=== PATIENT | male | born 1960 | race Caucasian/White ===

== ENCOUNTER 2019-07-03 10:51 | Inpatient (IN) | payer MEDICARE ==
[~2019-07-03] VITALS: Ht 165.1 cm; Wt 143.6 kg
--- NOTE | 2019-07-03 11:00 | NUR ---
Pt arrives from dialysis center with hypotension. Pt resident at [facility], was sent to dialysis center for dialysis catheter problem/cath change. Pt was noted to have BP 70's/50's; unable to complete procedure. (Cath to right chest has dressing placed today. Pt states last dialysis yesterday). Pt states he has been feeling unwell last 2-3 days with flu-like symptoms and malaise. Also c/o pain to bilat outer thighs. Pt has 2 wounds to abd that are dressed post wound vac. Pt states he was admitted to [facility] with infection and had surgical debridement there in April. Unable to assess wound beds due to presence of wound vac sponges. Wound vac left at [place]. Lower abd is erythematous and firm; when asked if this is within baseline for pt, he is unsure. Pt is otherwise alert, oriented, interacting well. Color is pale and pt is midly tachypneic with sats in high 80's on room air. Pt denies resp history. O2 2L via NC placed to keep sats above 92%.
[2019-07-03] MEDS: SODIUM CHLORIDE 0.9% 1,000ML IVBOLUS ONE ×2 (11:30→11:57)
[2019-07-03] MEDS ORDERED: PLEASE ENTER ALLERGIES MC SCH (11:30)
[2019-07-03] MEDS ORDERED: PLEASE ENTER HEIGHT AND WEIGHT MC SCH (11:30)
[2019-07-03] MEDS ORDERED: SODIUM CHLORIDE FLUSH 10ML SYR IVF ONE (11:30)
--- NOTE | 2019-07-03 12:00 | NUR ---
Pt continues to be alert and oriented, color improving with interventions. Pt has been incontinent of stool; pt cleaned, bed remade, and waffle mattress placed. Pt given ice chips; okay per Dr. Almeida.
[2019-07-03 12:03] LABS: MEAN CORPUSCULAR HEMOGLOBIN 30.1 pg (27.5-34.5); MEAN CORPUSCULAR HGB CONC 31.7 g/dL (33.2-36.2); MEAN CORPUSCULAR VOLUME 94.8 fL (81-97); MEAN PLATELET VOLUME 7.4 fL (7.4-10.4); PLATELET COUNT 198 x10^3/uL (130-400); RED BLOOD COUNT 3.98 x10^6/uL (4.38-5.82); RED CELL DISTRIBUTION WIDTH 18.4 % (9.4-14.8)
[2019-07-03 12:13] LABS: ALANINE AMINOTRANSFERASE 16 U/L (12-78); ALBUMIN 1.9 g/dL (3.4-5.0); ANION GAP 8 mmol/L (5-15); CALCIUM 9.4 mg/dL (8.5-10.1); CHLORIDE 97 mmol/L (98-107); CREATININE 7.71 mg/dL (0.7-1.3)
[2019-07-03 12:18] LABS: ALKALINE PHOSPHATASE 89 U/L (45-117); BILIRUBIN,TOTAL 0.4 mg/dL (0.2-1.0); TOTAL PROTEIN 7.3 g/dL (6.4-8.2); TROPONIN I < 0.015 ng/mL (0.000-0.045)
[2019-07-03 12:19] LABS: MD YES
[2019-07-03 12:20] LABS: ANISOCYTOSIS 1+; BAND#(MANUAL) 1.29 x10^3/uL; BANDS%(MANUAL) 4 % (0-7); LYMPH#(MANUAL) 0.65 x10^3/uL (1-3.4); LYMPHS% (MANUAL) 2 % (22-44); MONOS#(MANUAL) 1.62 x10^3/uL (0.3-2.7); MONOS% (MANUAL) 5 % (2-9); SEG#(MANUAL) 28.75 x10^3/uL (1.8-6.8); SEGS% (MANUAL) 89 % (42-75)
[2019-07-03 12:21] LABS: <PLATELET ESTIMATE> ADEQUATE; <PLT MORPHOLOGY> NORMAL PLT MORPH; PMNS WITH VACUOLES 1+; POLYCHROMASIA 1+
[2019-07-03] MEDS ORDERED: SODIUM CHLORIDE 0.9% 1,000ML IVBOLUS ONE (12:30)
[2019-07-03] MEDS ORDERED: GENTAMICIN PER PHARMACY MC PRN ×2 (12:30→13:30)
[2019-07-03] MEDS ORDERED: VANCOMYCIN PER PHARMACY MC ONE (12:30)
[2019-07-03 12:50] LABS: % IRON SATURATION 9 % (20-55); IRON LEVEL 17 mcg/dL (65-175); TOTAL IRON BINDING CAPACITY 187 mcg/dL (250-450)
[2019-07-03] MEDS ORDERED: ACETAMINOPHEN 500 MG TABLET ONE (12:59)
[2019-07-03] MEDS ORDERED: SODIUM CHLORIDE FLUSH 10ML SYR IVF PRN (13:00)
[2019-07-03] MEDS ORDERED: ACETAMINOPHEN 500 MG TABLET PO ONE (13:00)
[2019-07-03 13:05] LABS: CALCIUM 8.8 mg/dL (8.5-10.1)
[2019-07-03 13:06] LABS: ABSOLUTE RETICS # 0.076 x10^6/uL (0.5-1.5); RED BLOOD COUNT 3.81 x10^6/uL (4.38-5.82)
[2019-07-03] MEDS ORDERED: VANCOMYCIN PER PHARMACY MC PRN (13:30)
[2019-07-03] MEDS ORDERED: BISACODYL 10 MG SUPP PR PRN (13:30)
[2019-07-03] MEDS ORDERED: POLYETHYLENE GLYCOL 17 GM PACKET PO PRN (13:30)
[2019-07-03] MEDS ORDERED: ONDANSETRON 2MG/ML, 2ML IVPush PRN (13:30)
[2019-07-03] MEDS ORDERED: NOREPINEPHRINE 4 MG in SODIUM CHLORIDE 0.9% 246 ML IV PRN ×2 (13:30→14:56)
[2019-07-03] MEDS ORDERED: VASOPRESSIN 100 UNIT in SODIUM CHLORIDE 0.9% 495 ML IV PRN (13:30)
[2019-07-03] MEDS ORDERED: ACETAMINOPHEN 325 MG TABLET PO PRN (13:30)
--- NOTE | 2019-07-03 13:30 | NUR ---
PT STATES HE HAS DIALYSIS FISTULA IN LEFT ARM; THIS RN UNABLE TO PALPATE FISTULA. SALES COMMUNICATIONS MANAGER DR CHURCH IN TO SEE PT; DR CHURCH CONFIRMS TO FISTULA PALPATED. PER DR CHURCH, OK TO USE LEFT ARM FOR BP'S/IV
--- NOTE | 2019-07-03 13:43 | NUR ---
BEDSIDE REPORT RECIEVED FROM FANI MILLS, PT RESTING IN BED. CALL LIGHT IN REACH.
[2019-07-03] MEDS ORDERED: HEPARIN 5,000 UNITS/ML, 1ML ONE (13:48)
[2019-07-03] MEDS ORDERED: LIDOCAINE 1%, 10ML ONE ×2 (13:56→13:57)
[2019-07-03] MEDS ORDERED: PHARMACOKINETIC CONSULTATION MC ONE (14:00)
[2019-07-03] MEDS ORDERED: VANCOMYCIN 2,500 MG in SODIUM CHLORIDE 0.9% 500 ML IV ONE (14:00)
[2019-07-03] MEDS: HEPARIN 5,000 UNITS/ML, 1ML SQ SCH ×2 (14:17→21:40)
--- NOTE | 2019-07-03 14:26 | NUR ---
3rd Liter NS started. Pt with increasing oxygen requirement when sleeping (4L, up from 2L when awake). Breath sounds are clear, and sats increase when pt awakes. No concern for pulmonary edema at this time. Pt to IR for dialysis cath exchange.
[2019-07-03] MEDS ORDERED: SUCCINYLCHOLINE 20 MG/ML, 10ML IVPush ONE (15:00)
[2019-07-03] MEDS ORDERED: ETOMIDATE 20 MG/10 ML IV ONE (15:00)
--- NOTE | 2019-07-03 15:05 | NUR ---
Pt with decreased LOC in IR; responds minimally with deep sternal rub. Proceduralist uncomfortable with cath exchange; pt returned to ED. Dr Almeida notified and ABG's ordered.
--- NOTE | 2019-07-03 15:30 | NUR ---
Pt awakens with ABG draw and IV placement; states he "took a nap" while awaiting cath exchange and now woke up "with all these people buzzing around." Pt now alert and interacting appropriately. Dr. Rogers in to evaluate; wound dressings to abd removed; + foul smelling draining from both wounds. Wound Care consulted. Pt systolic remains above 90, but MAP consistently below 65. IV bolus still infusing; 4th liter starting. No urine output. Levophed started.
--- NOTE | 2019-07-03 15:45 | NUR ---
IR to ED to exchange catheter. automation machine builder at bedside. Report called to Tara in ICU and pt prepared for transport.
[2019-07-03] MEDS ORDERED: GENTAMICIN 270 MG in SODIUM CHLORIDE 0.9% 100 ML IV ONE (16:00)
[2019-07-03] MEDS: SODIUM CHLORIDE 0.9% 1,000 ML IV SCH (17:33)
[2019-07-03] MEDS ORDERED: FAMOTIDINE 20 MG TABLET PO SCH (21:00)
[2019-07-04] MEDS: SODIUM CHLORIDE 0.9% 1,000 ML IV SCH ×2 (02:07→11:00)
[2019-07-04 03:55] LABS: CLOSTRIDIUM DIFFICILE TOXIN NEGATIVE (Negative)
[2019-07-04 03:58] LABS: CLOSTRIDIUM DIFFICILE ANTIGEN POSITIVE
[2019-07-04 04:00] VITALS: BP 112/49
[2019-07-04 04:45] LABS: MEAN CORPUSCULAR HGB CONC 31.2 g/dL (33.2-36.2); MEAN CORPUSCULAR VOLUME 96.1 fL (81-97); MEAN PLATELET VOLUME 7.3 fL (7.4-10.4); PLATELET COUNT 210 x10^3/uL (130-400); RED BLOOD COUNT 3.64 x10^6/uL (4.38-5.82); RED CELL DISTRIBUTION WIDTH 19.4 % (9.4-14.8)
[2019-07-04 04:56] LABS: ALANINE AMINOTRANSFERASE 13 U/L (12-78); ALBUMIN 1.6 g/dL (3.4-5.0); ANION GAP 7 mmol/L (5-15); CHLORIDE 104 mmol/L (98-107)
[2019-07-04 04:59] LABS: ALKALINE PHOSPHATASE 95 U/L (45-117); BILIRUBIN,TOTAL 0.3 mg/dL (0.2-1.0); CREATININE 7.95 mg/dL (0.7-1.3); TOTAL PROTEIN 6.4 g/dL (6.4-8.2)
[2019-07-04] MEDS: HEPARIN 5,000 UNITS/ML, 1ML SQ SCH ×3 (05:14→21:43)
[2019-07-04 05:51] LABS: BASOPHILS # (AUTO) 0.03 x10^3/uL (0-0.1); BASOPHILS % (AUTO) 0 % (0-1); EOSINOPHILS # (AUTO) 0.14 x10^3/uL (0-0.4); EOSINOPHILS % (AUTO) 1 % (1-7); LYMPHOCYTES # (AUTO) 1.42 x10^3/uL (1-3.4); LYMPHOCYTES % (AUTO) 5 % (22-44); MD SCAN; MONOCYTES # (AUTO) 1.27 x10^3/uL (0.2-0.8); MONOCYTES % (AUTO) 4 % (2-9); NEUTROPHILS # (AUTO) 26.07 x10^3/uL (1.8-6.8); NEUTROPHILS % (AUTO) 90 % (42-75)
[2019-07-04] MEDS: VANCOMYCIN 50 MG/ML ORAL SUSP PO SCH ×3 (09:34→21:43)
[2019-07-04] MEDS: SENNA/DOCUSATE TABLET PO SCH (09:34)
[2019-07-04] MEDS ORDERED: PHARMACOKINETIC MONITORING MC PRN (11:00)
[2019-07-04] MEDS ORDERED: SODIUM CHLORIDE 0.9% 1,000 ML IV PRN (11:30)
[2019-07-04] MEDS: IRON SUCROSE COMPLEX 100MG/5ML IV SCH (14:09)
[2019-07-04] MEDS: DAKIN'S SOLUTION 1/4 STRENGTH 1,000 ML IRRIG SOLN EXT SCH (14:10)
[2019-07-04] MEDS ORDERED: AMLO2.5T5 PO (15:12)
[2019-07-04] MEDS ORDERED: LIDO6JEL MM (15:12)
[2019-07-04] MEDS ORDERED: SEVE800T8 PO (15:12)
[2019-07-04] MEDS ORDERED: DOXY50TA13 PO (15:12)
[2019-07-04] MEDS ORDERED: NIAC500T26 PO (15:12)
[2019-07-04] MEDS ORDERED: HUM100VI6 SQ (15:12)
[2019-07-04] MEDS ORDERED: GLIP2.5T3 PO (15:12)
[2019-07-04] MEDS ORDERED: HEPA1DIS11 SQ (15:12)
[2019-07-04] MEDS ORDERED: FERR325T5 PO (15:12)
[2019-07-04] MEDS ORDERED: ERGO500018 PO (15:12)
[2019-07-04] MEDS ORDERED: FOLI0.8T3 PO (15:12)
[2019-07-04] MEDS: FAMOTIDINE 20 MG TABLET PO SCH (21:43)
[2019-07-05 04:00] VITALS: BP 101/52
[2019-07-05] MEDS: VANCOMYCIN 50 MG/ML ORAL SUSP PO SCH ×4 (04:20→21:25)
[2019-07-05 05:07] LABS: CULTURE INDICATED? YES; MICROSCOPIC INDICATED
[2019-07-05] MEDS: HEPARIN 5,000 UNITS/ML, 1ML SQ SCH ×3 (06:06→21:25)
[2019-07-05] MEDS: SENNA/DOCUSATE TABLET PO SCH (08:13)
[2019-07-05] MEDS: DAKIN'S SOLUTION 1/4 STRENGTH 1,000 ML IRRIG SOLN EXT SCH (08:32)
[2019-07-05] MEDS: IRON SUCROSE COMPLEX 100MG/5ML IV SCH (08:45)
[2019-07-05 12:37] VITALS: BP 112/68
[2019-07-05 18:54] VITALS: BP 118/63
[2019-07-05] MEDS: FAMOTIDINE 20 MG TABLET PO SCH (21:24)
[2019-07-06 00:34] VITALS: BP 109/69
[2019-07-06] MEDS: VANCOMYCIN 50 MG/ML ORAL SUSP PO SCH ×4 (04:05→21:19)
[2019-07-06] MEDS: HEPARIN 5,000 UNITS/ML, 1ML SQ SCH ×3 (05:12→21:19)
[2019-07-06 06:30] LABS: ALANINE AMINOTRANSFERASE 18 U/L (12-78); ALBUMIN 1.6 g/dL (3.4-5.0); ANION GAP 9 mmol/L (5-15); CALCIUM 8.6 mg/dL (8.5-10.1); CHLORIDE 102 mmol/L (98-107); CREATININE 7.81 mg/dL (0.7-1.3)
[2019-07-06 06:32] LABS: ALKALINE PHOSPHATASE 94 U/L (45-117); BILIRUBIN,TOTAL 0.3 mg/dL (0.2-1.0); TOTAL PROTEIN 6.4 g/dL (6.4-8.2); VANCOMYCIN,RANDOM 20.5 mcg/mL
[2019-07-06 06:51] LABS: MEAN CORPUSCULAR HEMOGLOBIN 29.9 pg (27.5-34.5); MEAN CORPUSCULAR HGB CONC 31.5 g/dL (33.2-36.2); MEAN CORPUSCULAR VOLUME 94.8 fL (81-97); MEAN PLATELET VOLUME 6.9 fL (7.4-10.4); PLATELET COUNT 256 x10^3/uL (130-400); RED BLOOD COUNT 3.44 x10^6/uL (4.38-5.82); RED CELL DISTRIBUTION WIDTH 18.8 % (9.4-14.8)
[2019-07-06 07:03] VITALS: BP 118/69
[2019-07-06 07:17] LABS: MD YES
[2019-07-06 07:19] LABS: <PLATELET ESTIMATE> ADEQUATE; <PLT MORPHOLOGY> NORMAL PLT MORPH; ANISOCYTOSIS 1+; BAND#(MANUAL) 0.77 x10^3/uL; BANDS%(MANUAL) 4 % (0-7); EOS#(MANUAL) 0.58 x10^3/uL (0.0-0.4); EOS% (MANUAL) 3 % (1-7); LYMPH#(MANUAL) 1.54 x10^3/uL (1-3.4); LYMPHS% (MANUAL) 8 % (22-44); METAMYELOCYTES# (MANUAL) 0.39 x10^3/uL (0-0); METAMYELOCYTES% (MANUAL) 2 % (0-1); MONOS#(MANUAL) 1.35 x10^3/uL (0.3-2.7); MONOS% (MANUAL) 7 % (2-9); MYELOCYTES# (MANUAL) 0.58 x10^3/uL (0-0); MYELOCYTES% (MANUAL) 3 % (0-0); POLYCHROMASIA 1+; SEG#(MANUAL) 14.09 x10^3/uL (1.8-6.8); SEGS% (MANUAL) 73 % (42-75)
[2019-07-06] MEDS: SENNA/DOCUSATE TABLET PO SCH (08:05)
[2019-07-06] MEDS: IRON SUCROSE COMPLEX 100MG/5ML IV SCH (08:05)
[2019-07-06 13:02] LABS: VANCOMYCIN,RANDOM 15.5 mcg/mL
[2019-07-06] MEDS ORDERED: VANCOMYCIN 2,000 MG in SODIUM CHLORIDE 0.9% 250 ML IV ONE (14:00)
[2019-07-06 14:15] VITALS: BP 112/71
[2019-07-06] MEDS ORDERED: GENTAMICIN 160 MG in SODIUM CHLORIDE 0.9% 50 ML IV ONE (16:00)
[2019-07-06 18:31] VITALS: BP 120/62
[2019-07-06] MEDS: FAMOTIDINE 20 MG TABLET PO SCH (21:00)
[2019-07-06] MEDS ORDERED: FAMOTIDINE 40 MG TABLET ONE (21:14)
[2019-07-07 00:33] VITALS: BP 110/65
[2019-07-07] MEDS: VANCOMYCIN 50 MG/ML ORAL SUSP PO SCH ×3 (03:20→20:31)
[2019-07-07] MEDS: HEPARIN 5,000 UNITS/ML, 1ML SQ SCH ×3 (05:30→19:51)
[2019-07-07 05:37] LABS: MEAN CORPUSCULAR HEMOGLOBIN 29.8 pg (27.5-34.5); MEAN CORPUSCULAR HGB CONC 31.6 g/dL (33.2-36.2); MEAN CORPUSCULAR VOLUME 94.4 fL (81-97); MEAN PLATELET VOLUME 6.9 fL (7.4-10.4); PLATELET COUNT 259 x10^3/uL (130-400); RED BLOOD COUNT 3.39 x10^6/uL (4.38-5.82); RED CELL DISTRIBUTION WIDTH 18.7 % (9.4-14.8)
[2019-07-07 05:43] LABS: ALBUMIN 1.6 g/dL (3.4-5.0); ANION GAP 8 mmol/L (5-15); CALCIUM 8.8 mg/dL (8.5-10.1); CHLORIDE 102 mmol/L (98-107)
[2019-07-07 05:44] LABS: CREATININE 6.17 mg/dL (0.7-1.3)
[2019-07-07 06:20] LABS: MD YES
[2019-07-07 06:22] LABS: <PLATELET ESTIMATE> ADEQUATE; <PLT MORPHOLOGY> NORMAL PLT MORPH; ANISOCYTOSIS 1+; BAND#(MANUAL) 0.21 x10^3/uL; BANDS%(MANUAL) 1 % (0-7); EOS#(MANUAL) 0.63 x10^3/uL (0.0-0.4); EOS% (MANUAL) 3 % (1-7); LYMPH#(MANUAL) 1.48 x10^3/uL (1-3.4); LYMPHS% (MANUAL) 7 % (22-44); METAMYELOCYTES# (MANUAL) 1.27 x10^3/uL (0-0); METAMYELOCYTES% (MANUAL) 6 % (0-1); MONOS#(MANUAL) 1.06 x10^3/uL (0.3-2.7); MONOS% (MANUAL) 5 % (2-9); MYELOCYTES# (MANUAL) 0.84 x10^3/uL (0-0); MYELOCYTES% (MANUAL) 4 % (0-0); NRBC % (MANUAL) 1 % (0-1); POLYCHROMASIA 1+; SEG#(MANUAL) 15.61 x10^3/uL (1.8-6.8); SEGS% (MANUAL) 74 % (42-75)
[2019-07-07] MEDS: DAKIN'S SOLUTION 1/4 STRENGTH 1,000 ML IRRIG SOLN EXT SCH ×2 (07:29→15:46)
[2019-07-07] MEDS: IRON SUCROSE COMPLEX 100MG/5ML IV SCH (08:50)
[2019-07-07 08:52] VITALS: BP 111/69
[2019-07-07] MEDS: SENNA/DOCUSATE TABLET PO SCH (09:00)
[2019-07-07] MEDS ORDERED: LIDOCAINE 2%, 10ML INFIL ONE (09:30)
[2019-07-07 14:06] VITALS: BP 124/78
[2019-07-07] MEDS ORDERED: FENTANYL PF 100 MCG/2ML ONE (17:15)
[2019-07-07] MEDS ORDERED: MIDAZOLAM 1 MG/ML, 5ML ONE (17:16)
[2019-07-07] MEDS ORDERED: NALOXONE 1 MG/ML, 2ML ONE (17:16)
[2019-07-07] MEDS ORDERED: FLUMAZENIL 0.1 MG/1 ML, 5ML ONE (17:16)
[2019-07-07] MEDS ORDERED: LIDOCAINE 1%, 10ML ONE (17:48)
[2019-07-07] MEDS ORDERED: LIDOCAINE 1%, 20ML ONE (17:48)
[2019-07-07 19:23] VITALS: BP 116/68
[2019-07-07] MEDS: FAMOTIDINE 20 MG TABLET PO SCH (20:31)
[2019-07-08] MEDS: VANCOMYCIN 50 MG/ML ORAL SUSP PO SCH ×4 (01:31→21:32)
[2019-07-08 02:35] VITALS: BP 117/75
[2019-07-08] MEDS: HEPARIN 5,000 UNITS/ML, 1ML SQ SCH ×3 (04:39→16:26)
[2019-07-08 05:28] LABS: MEAN CORPUSCULAR HEMOGLOBIN 30.4 pg (27.5-34.5); MEAN CORPUSCULAR HGB CONC 32.4 g/dL (33.2-36.2); MEAN CORPUSCULAR VOLUME 93.9 fL (81-97); MEAN PLATELET VOLUME 6.8 fL (7.4-10.4); PLATELET COUNT 270 x10^3/uL (130-400); RED BLOOD COUNT 3.36 x10^6/uL (4.38-5.82); RED CELL DISTRIBUTION WIDTH 18.5 % (9.4-14.8)
[2019-07-08 05:38] LABS: ALBUMIN 1.6 g/dL (3.4-5.0); ANION GAP 10 mmol/L (5-15); CALCIUM 8.6 mg/dL (8.5-10.1); CHLORIDE 105 mmol/L (98-107); CREATININE 7.68 mg/dL (0.7-1.3)
[2019-07-08 06:00] VITALS: BP 117/68
[2019-07-08 06:25] LABS: MD YES
[2019-07-08 06:27] LABS: BAND#(MANUAL) 0.76 x10^3/uL; BANDS%(MANUAL) 4 % (0-7); EOS#(MANUAL) 0.19 x10^3/uL (0.0-0.4); EOS% (MANUAL) 1 % (1-7); LYMPH#(MANUAL) 1.15 x10^3/uL (1-3.4); LYMPHS% (MANUAL) 6 % (22-44); METAMYELOCYTES# (MANUAL) 0.38 x10^3/uL (0-0); METAMYELOCYTES% (MANUAL) 2 % (0-1); MONOS#(MANUAL) 1.53 x10^3/uL (0.3-2.7); MONOS% (MANUAL) 8 % (2-9); MYELOCYTES# (MANUAL) 0.57 x10^3/uL (0-0); MYELOCYTES% (MANUAL) 3 % (0-0); NRBC % (MANUAL) 1 % (0-1); SEG#(MANUAL) 14.52 x10^3/uL (1.8-6.8); SEGS% (MANUAL) 76 % (42-75)
[2019-07-08 06:28] LABS: ANISOCYTOSIS 1+
[2019-07-08 06:29] LABS: POLYCHROMASIA 1+
[2019-07-08 06:30] LABS: <PLATELET ESTIMATE> ADEQUATE; <PLT MORPHOLOGY> NORMAL PLT MORPH
[2019-07-08] MEDS: IRON SUCROSE COMPLEX 100MG/5ML IV SCH (08:00)
[2019-07-08] MEDS: SENNA/DOCUSATE TABLET PO SCH (09:00)
[2019-07-08] MEDS: DAKIN'S SOLUTION 1/4 STRENGTH 1,000 ML IRRIG SOLN EXT SCH (09:00)
[2019-07-08 14:39] VITALS: BP 112/77
[2019-07-08 19:41] VITALS: BP 113/73
[2019-07-08] MEDS ORDERED: FAMOTIDINE 40 MG TABLET ONE (21:29)
[2019-07-08] MEDS: FAMOTIDINE 20 MG TABLET PO SCH (21:33)
[2019-07-09 00:31] VITALS: BP 111/74
[2019-07-09] MEDS: HEPARIN 5,000 UNITS/ML, 1ML SQ SCH ×3 (00:35→16:37)
[2019-07-09] MEDS: VANCOMYCIN 50 MG/ML ORAL SUSP PO SCH ×4 (04:13→21:29)
[2019-07-09 05:56] LABS: MEAN CORPUSCULAR HEMOGLOBIN 29.9 pg (27.5-34.5); MEAN CORPUSCULAR HGB CONC 31.8 g/dL (33.2-36.2); MEAN CORPUSCULAR VOLUME 93.9 fL (81-97); MEAN PLATELET VOLUME 6.8 fL (7.4-10.4); PLATELET COUNT 262 x10^3/uL (130-400); RED BLOOD COUNT 3.33 x10^6/uL (4.38-5.82); RED CELL DISTRIBUTION WIDTH 17.8 % (9.4-14.8)
[2019-07-09 06:02] LABS: ANION GAP 5 mmol/L (5-15); CALCIUM 8.7 mg/dL (8.5-10.1); CHLORIDE 103 mmol/L (98-107); CREATININE 5.92 mg/dL (0.7-1.3)
[2019-07-09 06:48] LABS: MD YES
[2019-07-09 06:50] LABS: BAND#(MANUAL) 0.47 x10^3/uL; BANDS%(MANUAL) 3 % (0-7); EOS% (MANUAL) 4 % (1-7); LYMPH#(MANUAL) 2.03 x10^3/uL (1-3.4); LYMPHS% (MANUAL) 13 % (22-44); METAMYELOCYTES# (MANUAL) 0.94 x10^3/uL (0-0); METAMYELOCYTES% (MANUAL) 6 % (0-1); MONOS#(MANUAL) 1.25 x10^3/uL (0.3-2.7); MONOS% (MANUAL) 8 % (2-9); MYELOCYTES# (MANUAL) 0.62 x10^3/uL (0-0); MYELOCYTES% (MANUAL) 4 % (0-0); SEG#(MANUAL) 9.67 x10^3/uL (1.8-6.8); SEGS% (MANUAL) 62 % (42-75)
[2019-07-09 06:51] LABS: <PLATELET ESTIMATE> ADEQUATE; <PLT MORPHOLOGY> NORMAL PLT MORPH; ANISOCYTOSIS 1+; EOS#(MANUAL) 0.62 x10^3/uL (0.0-0.4); POLYCHROMASIA 1+
[2019-07-09 07:03] VITALS: BP 120/73
[2019-07-09] MEDS: SENNA/DOCUSATE TABLET PO SCH (09:00)
[2019-07-09] MEDS: DAKIN'S SOLUTION 1/4 STRENGTH 1,000 ML IRRIG SOLN EXT SCH (09:00)
[2019-07-09 14:08] VITALS: BP 119/72
[2019-07-09 20:21] VITALS: BP_SYST 124; BP_SYST 145; BP_DIAS 79; BP_DIAS 81
[2019-07-09] MEDS ORDERED: FAMOTIDINE 40 MG TABLET ONE (21:17)
[2019-07-09] MEDS: FAMOTIDINE 20 MG TABLET PO SCH (21:29)
[2019-07-10] MEDS: HEPARIN 5,000 UNITS/ML, 1ML SQ SCH ×3 (00:44→17:02)
[2019-07-10 00:46] VITALS: BP 114/75
[2019-07-10] MEDS: VANCOMYCIN 50 MG/ML ORAL SUSP PO SCH ×4 (04:14→21:39)
[2019-07-10 05:52] LABS: MEAN CORPUSCULAR HEMOGLOBIN 29.9 pg (27.5-34.5); MEAN CORPUSCULAR HGB CONC 31.9 g/dL (33.2-36.2); MEAN CORPUSCULAR VOLUME 93.7 fL (81-97); MEAN PLATELET VOLUME 6.8 fL (7.4-10.4); PLATELET COUNT 291 x10^3/uL (130-400); RED BLOOD COUNT 3.43 x10^6/uL (4.38-5.82); RED CELL DISTRIBUTION WIDTH 18.2 % (9.4-14.8)
[2019-07-10 05:55] LABS: ALBUMIN 1.9 g/dL (3.4-5.0); ANION GAP 9 mmol/L (5-15); CALCIUM 8.4 mg/dL (8.5-10.1); CHLORIDE 102 mmol/L (98-107)
[2019-07-10 05:56] LABS: CREATININE 7.45 mg/dL (0.7-1.3)
[2019-07-10 06:26] LABS: MD YES
[2019-07-10 06:29] LABS: BAND#(MANUAL) 0.14 x10^3/uL; BANDS%(MANUAL) 1 % (0-7); EOS% (MANUAL) 5 % (1-7); LYMPH#(MANUAL) 1.96 x10^3/uL (1-3.4); LYMPHS% (MANUAL) 14 % (22-44); METAMYELOCYTES# (MANUAL) 0.42 x10^3/uL (0-0); METAMYELOCYTES% (MANUAL) 3 % (0-1); MONOS#(MANUAL) 0.42 x10^3/uL (0.3-2.7); MONOS% (MANUAL) 3 % (2-9); SEG#(MANUAL) 10.36 x10^3/uL (1.8-6.8); SEGS% (MANUAL) 74 % (42-75)
[2019-07-10 06:33] LABS: ANISOCYTOSIS 1+; POLYCHROMASIA 1+
[2019-07-10 06:35] LABS: <PLATELET ESTIMATE> ADEQUATE; <PLT MORPHOLOGY> NORMAL PLT MORPH
[2019-07-10 07:29] VITALS: BP 122/74
[2019-07-10] MEDS: DAKIN'S SOLUTION 1/4 STRENGTH 1,000 ML IRRIG SOLN EXT SCH (09:00)
[2019-07-10] MEDS: SENNA/DOCUSATE TABLET PO SCH (09:43)
[2019-07-10] MEDS ORDERED: VANC1VIA3 PO (10:56)
[2019-07-10 13:30] VITALS: BP 117/78
[2019-07-10] MEDS ORDERED: LIDOCAINE 2%, 10ML INFIL ONE ×2 (14:30→16:00)
[2019-07-10] MEDS ORDERED: MORPHINE SULFATE 4 MG/ML, 1ML ONE (14:58)
[2019-07-10] MEDS ORDERED: MORPHINE SULFATE 4 MG/ML, 1ML IVPush PRN (15:00)
[2019-07-10 19:42] VITALS: BP 109/66
[2019-07-10] MEDS: FAMOTIDINE 20 MG TABLET PO SCH (21:39)
[2019-07-10] MEDS ORDERED: FAMOTIDINE 10 MG TAB PO SCH (23:58)
[2019-07-11] MEDS: HEPARIN 5,000 UNITS/ML, 1ML SQ SCH ×2 (01:07→10:35)
[2019-07-11 01:15] VITALS: BP 109/71
[2019-07-11] MEDS: VANCOMYCIN 50 MG/ML ORAL SUSP PO SCH ×2 (04:09→10:00)
[2019-07-11 05:43] LABS: BASOPHILS # (AUTO) 0.04 x10^3/uL (0-0.1); BASOPHILS % (AUTO) 0 % (0-1); EOSINOPHILS # (AUTO) 0.32 x10^3/uL (0-0.4); EOSINOPHILS % (AUTO) 3 % (1-7); LYMPHOCYTES # (AUTO) 1.68 x10^3/uL (1-3.4); LYMPHOCYTES % (AUTO) 14 % (22-44); MD NO; MEAN CORPUSCULAR HEMOGLOBIN 29.9 pg (27.5-34.5); MEAN CORPUSCULAR HGB CONC 31.9 g/dL (33.2-36.2); MEAN CORPUSCULAR VOLUME 93.8 fL (81-97); MEAN PLATELET VOLUME 6.7 fL (7.4-10.4); MONOCYTES # (AUTO) 1.04 x10^3/uL (0.2-0.8); MONOCYTES % (AUTO) 9 % (2-9); NEUTROPHILS # (AUTO) 8.66 x10^3/uL (1.8-6.8); NEUTROPHILS % (AUTO) 74 % (42-75); PLATELET COUNT 270 x10^3/uL (130-400); RED BLOOD COUNT 3.36 x10^6/uL (4.38-5.82); RED CELL DISTRIBUTION WIDTH 17.9 % (9.4-14.8)
[2019-07-11 05:49] LABS: ANION GAP 7 mmol/L (5-15); CALCIUM 8.9 mg/dL (8.5-10.1); CHLORIDE 102 mmol/L (98-107)
[2019-07-11 05:51] LABS: CREATININE 5.85 mg/dL (0.7-1.3)
[2019-07-11 08:00] VITALS: BP 136/79
[2019-07-11] MEDS: DAKIN'S SOLUTION 1/4 STRENGTH 1,000 ML IRRIG SOLN EXT SCH (09:00)
[2019-07-11] MEDS: SENNA/DOCUSATE TABLET PO SCH ×2 (10:36→10:40)
[2019-07-11 10:43] VITALS: BP 136/79
[2019-07-11] MEDS ORDERED: FAMOTIDINE 10 MG TAB PO SCH (21:00)
== END 2019-07-11 17:44 | DRG 314 ==
LOC: ED 12:41 → EDIP 12:42 → ED 13:22 → CCU 16:48 → 4NE 07-05 12:19 → 3N 07-07 06:33
PROVIDERS: ADMIT Internal Medicine; ATTEND Hospitalist
PROC: 02HV33Z Insertion of Infusion Device into Superior Vena Cava, Percutaneous Approach (ICD-10-PCS; principal; 2019-07-03)
PROC: B548ZZA Ultrasonography of Superior Vena Cava, Guidance (ICD-10-PCS; 2019-07-03)
PROC: 05PYX3Z Removal of Infusion Device from Upper Vein, External Approach (ICD-10-PCS; 2019-07-03)
PROC: 5A1D70Z Performance of Urinary Filtration, Intermittent, Less than 6 Hours Per Day (ICD-10-PCS; 2019-07-04)
PROC: 5A1D70Z Performance of Urinary Filtration, Intermittent, Less than 6 Hours Per Day (ICD-10-PCS; 2019-07-06)
PROC: 0JH63XZ Insertion of Tunneled Vascular Access Device into Chest Subcutaneous Tissue and Fascia, Percutaneous Approach (ICD-10-PCS; 2019-07-07)
PROC: 02HV33Z Insertion of Infusion Device into Superior Vena Cava, Percutaneous Approach (ICD-10-PCS; 2019-07-07)
PROC: B5181ZA Fluoroscopy of Superior Vena Cava using Low Osmolar Contrast, Guidance (ICD-10-PCS; 2019-07-07)
PROC: B548ZZA Ultrasonography of Superior Vena Cava, Guidance (ICD-10-PCS; 2019-07-07)
PROC: 5A1D70Z Performance of Urinary Filtration, Intermittent, Less than 6 Hours Per Day (ICD-10-PCS; 2019-07-08)
PROC: 5A1D70Z Performance of Urinary Filtration, Intermittent, Less than 6 Hours Per Day (ICD-10-PCS; 2019-07-10)
DX: T82.7XXA Infection and inflammatory reaction due to other cardiac and vascular devices, implants and grafts, initial encounter (principal); A41.9 Sepsis, unspecified organism; R65.21 Severe sepsis with septic shock; G93.41 Metabolic encephalopathy; E43 Unspecified severe protein-calorie malnutrition; N18.6 End stage renal disease; E87.1 Hypo-osmolality and hyponatremia; A04.72 Enterocolitis due to Clostridium difficile, not specified as recurrent; Z68.43 Body mass index [BMI] 50.0-59.9, adult; I12.0 Hypertensive chronic kidney disease with stage 5 chronic kidney disease or end stage renal disease; L03.311 Cellulitis of abdominal wall; T82.41XA Breakdown (mechanical) of vascular dialysis catheter, initial encounter; E66.01 Morbid (severe) obesity due to excess calories; E11.65 Type 2 diabetes mellitus with hyperglycemia; N25.0 Renal osteodystrophy; Y71.2 Prosthetic and other implants, materials and accessory cardiovascular devices associated with adverse incidents; Y92.89 Other specified places as the place of occurrence of the external cause; D63.1 Anemia in chronic kidney disease; E11.22 Type 2 diabetes mellitus with diabetic chronic kidney disease; Z82.49 Family history of ischemic heart disease and other diseases of the circulatory system; Z99.2 Dependence on renal dialysis
CPT/HCPCS: 36415; 36556; 36558; 36589; 36600; 71045; 76937; 77001; 80048; 80053; 80069; 80170; 80202; 81001; 82306; 82310; 82533; 82728; 82803; 83540; 83550; 83605; 83735; 83880; 83970; 84100; 84145; 84443; 84484; 84550; 85025; 85045; 86706; 86708; 87040; 87070; 87081; 87086; 87324; 87340; 87493; 90935; 93005; 96361; 96365; 96366; 96375; 99156; 99157; C1894; G0378; J1644; J1756; J2001; J2250; J3010; J3370; C1750; C1751; C1769; J1580; J1642; J2270; J2310; J7030; J7040; J7050

== ENCOUNTER 2021-01-24 11:48 | Day surgery (SDC) | payer MEDICARE, MEDICAID ==
[~2021-01-24] VITALS: Ht 165.1 cm; Wt 129.1 kg
[~2021-01-24 11:48] MED LIST: AMLO2.5T5 PO; DOXY50TA13 PO; ERGO500018 PO; FERR325T5 PO; FOLI0.8T3 PO; GLIP2.5T3 PO; HEPA1DIS11 SQ; HUM100VI6 SQ; LIDO6JEL MM; NIAC500T26 PO; SEVE800T8 PO; VANC1VIA36 PO
[2021-01-24 12:44] VITALS: BP 110/67
[2021-01-24] MEDS ORDERED: ATOR20TA86 PO (12:56)
[2021-01-24] MEDS ORDERED: SUCR500T PO (12:56)
[2021-01-24] MEDS ORDERED: GLIP5TAB10 PO (12:56)
[2021-01-24] MEDS ORDERED: CHLORHEXIDINE 15 ML UDC ONE (13:16)
[2021-01-24] MEDS ORDERED: SODIUM CHLORIDE 0.9% 1,000 ML IV SCH (13:30)
[2021-01-24] MEDS ORDERED: CHLORHEXIDINE 15 ML UDC PO ONE (13:30)
[2021-01-24 13:32] LABS: ALANINE AMINOTRANSFERASE 16 U/L (12-78); ALBUMIN 3.1 g/dL (3.4-5.0); ANION GAP 8 mmol/L (5-15); CALCIUM 9.6 mg/dL (8.5-10.1); CHLORIDE 100 mmol/L (98-107)
[2021-01-24 13:33] LABS: BASOPHILS % (AUTO) 2 % (0-1); EOSINOPHILS % (AUTO) 3 % (1-7); LYMPHOCYTES % (AUTO) 16 % (22-44); MEAN CORPUSCULAR HEMOGLOBIN 29.6 pg (27.5-34.5); MEAN CORPUSCULAR HGB CONC 32.8 g/dL (33.2-36.2); MEAN PLATELET VOLUME 8.2 fL (7.4-10.4); MONOCYTES % (AUTO) 10 % (2-9); NEUTROPHILS % (AUTO) 70 % (42-75); PLATELET COUNT 164 x10^3/uL (130-400); RED CELL DISTRIBUTION WIDTH 14.3 % (9.4-14.8)
[2021-01-24 13:35] LABS: ALKALINE PHOSPHATASE 63 U/L (45-117); BILIRUBIN,TOTAL 0.4 mg/dL (0.2-1.0); TOTAL PROTEIN 7.7 g/dL (6.4-8.2)
[2021-01-24] MEDS ORDERED: BUPIVACAINE/PF 0.5% ONE (14:59)
[2021-01-24] MEDS ORDERED: PROTAMINE SULFATE 10 MG/ML, 5ML ONE (15:00)
[2021-01-24] MEDS ORDERED: INSULIN SINGLE DOSE, ER ONE (15:00)
[2021-01-24] MEDS ORDERED: EPINEPHRINE 1 MG/ML, 1ML ONE (15:00)
[2021-01-24] MEDS ORDERED: THROMBIN 20,000 UNIT VIAL TP ONE (15:00)
[2021-01-24] MEDS ORDERED: HEPARIN 1,000 UNITS/ML, 10ML ONE (15:00)
[2021-01-24] MEDS ORDERED: FUROSEMIDE 20 MG/2 ML ONE (15:00)
[2021-01-24] MEDS ORDERED: ROCURONIUM 10 MG/ML,10ML ONE (15:25)
[2021-01-24] MEDS ORDERED: ONDANSETRON 2MG/ML, 2ML ONE (15:25)
[2021-01-24] MEDS ORDERED: CEFAZOLIN 1,000 MG ONE (15:25)
[2021-01-24] MEDS ORDERED: OXYcodone 5 MG/5 ML ORAL.SOL UDC PO PRN (16:30)
[2021-01-24] MEDS ORDERED: HYDROmorphone 1 MG/ML, 1ML INJ IVPush PRN (16:30)
[2021-01-24] MEDS ORDERED: LABETALOL 5MG/ML, 20ML IV PRN (16:30)
[2021-01-24] MEDS ORDERED: FENTANYL PF 100 MCG/2ML IV PRN (16:30)
[2021-01-24] MEDS ORDERED: hydrALAzine 20 MG/ML, 1ML IV PRN (16:30)
[2021-01-24] MEDS ORDERED: METHOCARBAMOL 1,000 MG in DEXTROSE 5% 100 ML IV PRN (16:30)
[2021-01-24] MEDS ORDERED: EPHEDRINE 50 MG/ML, 1ML IM PRN (16:30)
[2021-01-24] MEDS ORDERED: ACETAMINOPHEN 325 MG TABLET PO PRN (16:30)
[2021-01-24] MEDS ORDERED: EPHEDRINE 50 MG/ML, 1ML IVPush PRN (16:30)
[2021-01-24] MEDS ORDERED: ONDANSETRON 2MG/ML, 2ML IVPush PRN (16:30)
[2021-01-24] MEDS ORDERED: PROMETHAZINE 25 MG/ML, 1ML IVPush PRN (16:30)
[2021-01-24] MEDS ORDERED: LORazepam 2 MG/ML, 1ML IVPush PRN (16:30)
[2021-01-24] MEDS ORDERED: FENTANYL PF 250 MCG/5ML ONE (16:31)
[2021-01-24] MEDS ORDERED: PROPOFOL 50 ML ONE (16:40)
[2021-01-24] MEDS ORDERED: SUGAMMADEX 200 MG/2 ML IVPush ONE (17:07)
[2021-01-24] MEDS ORDERED: ACETAMINOPHEN 650 MG/20.3 ML UDC ONE (17:29)
[2021-01-24] MEDS ORDERED: OXYcodone 5 MG/5 ML ORAL.SOL UDC ONE (17:29)
[2021-01-24] MEDS ORDERED: OXYcodone IR 5MG TABLET ONE (18:55)
== END 2021-01-24 19:00 | disposition home or self-care (01) ==
LOC: OUT 11:48
PROVIDERS: ATTEND Surgery
DX: E11.22 Type 2 diabetes mellitus with diabetic chronic kidney disease (principal); I12.0 Hypertensive chronic kidney disease with stage 5 chronic kidney disease or end stage renal disease; N18.6 End stage renal disease; D63.1 Anemia in chronic kidney disease; E78.5 Hyperlipidemia, unspecified; G47.33 Obstructive sleep apnea (adult) (pediatric); E66.01 Morbid (severe) obesity due to excess calories; F17.210 Nicotine dependence, cigarettes, uncomplicated; Z20.822 Contact with and (suspected) exposure to COVID-19; Z68.43 Body mass index [BMI] 50.0-59.9, adult; Z79.4 Long term (current) use of insulin; Z79.899 Other long term (current) drug therapy; Z99.2 Dependence on renal dialysis
CPT/HCPCS: 36415; 36821; 71045; 80053; 85025; 87635; 93005; J0171; J0690; J1644; J1815; J1940; J2405; J2704; J2720; J3010; J7030